=== PATIENT | male | born 1995 | race Caucasian/White ===

== ENCOUNTER → 2017-02-28 | Outpatient (CLI) | payer OTHER ==
--- NOTE | 2017-02-28 11:46 | DIAGNOSTIC IMAGING REPORT ---
TESTICULAR ULTRASOUND HISTORY: N43.40 [id number] COMPARISON: None. FINDINGS: Right testis: 5.4 x 2.8 x 3.2 cm. There are no intratesticular masses. Normal color flow. No significant hydrocele. The epididymis is unremarkable. Left testis: 5.5 x 2.6 x 3.2 cm. There are no intratesticular masses. Normal color flow. No hydrocele. There is a 1.4 x 1.3 x 1.0 cm cyst within the epididymal head. This demonstrates punctate internal echoes. This corresponds the patient's bowel abnormality. IMPRESSION: 1. Normal bilateral testes. 2. A 1.4 x 1.3 x 1.0 cm slightly complex cyst within the left epididymal head. This likely represents a spermatocele. Electronically signed by: Jose Maria Choi M.D. 02/28/2017 11:44 AM Dictated Date/Time: 02/28/2017 11:42 AM
== END | disposition home or self-care (01) ==
LOC: C.ULTR 11:06
PROVIDERS: ATTEND Urology
DX: N43.40 Spermatocele of epididymis, unspecified (principal); N50.9 Disorder of male genital organs, unspecified

== ENCOUNTER 2017-11-04 14:10 | Emergency (ER) | payer OTHER ==
[~2017-11-04] VITALS: Ht 170.2 cm; Wt 80.6 kg
[2017-11-04 14:30] VITALS: BP 118/73; PULSE 89; TEMP 36.6; O2SAT 100; Ht 170.2 cm; Wt 80.6 kg
--- NOTE | 2017-11-04 15:05 | DIAGNOSTIC IMAGING REPORT ---
RIGHT KNEE 2 VIEWS HISTORY: R lateral knee pain COMPARISON: None. FINDINGS: There is no fracture or dislocation. Soft tissues are unremarkable. No radiopaque foreign bodies. No significant knee effusion IMPRESSION: Unremarkable right knee. Electronically signed by: Jose Maria Choi M.D. 11/04/2017 3:04 PM Dictated Date/Time: 11/04/2017 3:00 PM
--- NOTE | 2017-11-04 15:23 | EMERGENCY ROOM VISIT NOTE ---
History First contact with patient: 14:34 Chief Complaint: KNEEPAIN Stated Complaint: R KNEE PAIN History of Present Illness The patient is a 22 year old male who presents to the Emergency Room with complaints of right lateral knee pain after playing soccer yesterday. The patient reports that he did feel one pop while playing. He reports twisting the knee the second time. The patient has not noticed any significant swelling. Ambulation and weightbearing worsens his pain to a 7 out of 10. He denies any gross instability, clicking or locking. He denies any pain extending into the thigh or leg. The patient has a history of left anterior cruciate ligament reconstruction in 2016. He denies any paresthesias or numbness of the right lower extremity. Review of Systems 10 system review was performed and was negative except for pertinent positives and negatives as indicated in history of present illness Past Medical/Surgical History Medical Problems: (1) Spermatocele Of Epididymis, Unspecified Surgical Problems: (1) History of reconstruction of anterior cruciate ligament tear Family History Unremarkable Social History Smoking Status: Never Smoker Alcohol Use: occasionally Marital Status: single Occupation Status: [employer] student Current/Historical Medications No Active Prescriptions or Reported Meds Physical Exam Vital Signs Date Time Temp Pulse Resp B/P (MAP) Pulse Ox O2 Delivery O2 Flow Rate FiO2 11/04/17 14:30 36.6 89 16 118/73 100 Room Air Physical Exam CONSTITUTIONAL: Healthy and well nourished. Alert and oriented X 3 with positive affect. Patient does not appear in any acute distress. HEENT: Normocephalic, atraumatic. Pupils equal, round and reactive. NECK: Full active range of motion without discomfort. MUSCULOSKELETAL: Examination of the right knee does not show any tissue injuries , ecchymosis or edema. No joint effusion appreciated. The patient is tender over the lateral joint line, and has worsening pain with varus stress. There is no gross ligamentous instability. Patient also has a positive anterior draw solid endpoint. Negative posterior draw area negative pivot shift. No popliteal masses. The patient has full active range of motion without discomfort. No focal tenderness to palpation of the proximal fibula or tibial plateau. Pedal pulses are intact. INTEGUMENTARY: No rash or other significant dermatologic conditions noted. NEUROLOGIC: Right lower extremity is sensory intact. Medical Decision & Procedures ER Provider Diagnostic Interpretation: My interpretation of right knee x-rays does not show any acute fractures or joint effusion. Radiologist report is as follows: RIGHT KNEE 2 VIEWS HISTORY: R lateral knee pain COMPARISON: None. FINDINGS: There is no fracture or dislocation. Soft tissues are unremarkable. No radiopaque foreign bodies. No significant knee effusion IMPRESSION: Unremarkable right knee. ED Course Patient history and physical exam were performed. Nurse's notes were reviewed. Vital signs were reviewed and were normal. The patient refused any analgesics while in the emergency department. X-rays of the right knee were normal. A knee immobilizer and crutches were dispensed. The patient was encouraged to intermittently apply ice and elevate the knee for swelling and pain. Ibuprofen and Tylenol if needed for additional pain relief. The patient was provided contact information for [facility] for further follow- up and management. The patient's was happy with plan of care, voiced understanding of all discharge instructions, and denied any significant pain at the time of discharge. Medical Decision Medication Reconcilliation Current Medication List: was personally reviewed by mo Blood Pressure Screening Patient's blood pressure: Normal blood pressure Impression Primary Impression: Pain in lateral portion of right knee Departure Information Prescriptions No Active Prescriptions or Reported Meds Referrals No Doctor, Assigned (PCP) Patient Instructions My [facility]
== END 2017-11-04 15:30 | disposition home or self-care (01) ==
LOC: C.EDB 14:11 → C.EDD 15:30
DX: M25.561 Pain in right knee (principal); X50.0XXA Overexertion from strenuous movement or load, initial encounter; Y93.66 Activity, soccer

== ENCOUNTER → 2018-05-07 | Outpatient (CLI) | payer OTHER | END | disposition home or self-care (01) | LOC: C.RDSM 09:50 | PROVIDERS: ATTEND Orthopaedic Surgery Sports Medicine | DX: M25.561 Pain in right knee (principal); M25.562 Pain in left knee ==

== ENCOUNTER 2018-06-02 22:01 | Emergency (ER) | payer OTHER ==
[2018-06-02 22:06] VITALS: BP 134/85; PULSE 116; TEMP 36.9; O2SAT 96
[2018-06-02] MEDS ORDERED: IBUPROFEN 600 MG TAB PO STA (22:16)
[2018-06-02] MEDS ORDERED: MONTELUKAST SOD 10 MG TAB PO STA (22:16)
[2018-06-02] MEDS ORDERED: BENZONATATE 100MG CAP PO STA (22:16)
[2018-06-02] MEDS ORDERED: ALBUTEROL HFA 8 GM INHALER INH STA (22:16)
[2018-06-02] MEDS ORDERED: MONT1TAB3 PO (22:18)
[2018-06-02] MEDS ORDERED: METH4PAK PO (22:18)
[2018-06-02] MEDS ORDERED: BENZ1CAP90 PO (22:18)
--- NOTE | 2018-06-02 22:20 | EMERGENCY ROOM VISIT NOTE ---
ED Visit Note First contact with patient: 22:10 CHIEF COMPLAINT: Asthma, allergy symptoms HISTORY OF PRESENT ILLNESS: This 22-year-old male patient presents to the emergency department ambulatory, complaining of URI symptoms x 3 days. The patient states they have been experiencing congestion, runny nose, sore throat, cough, chills, sneezing, and wheezing. He reports chest congestion and dry cough. He states symptoms are worse at night and improved in the morning. They deny any other symptoms including otalgia, swollen lymph nodes, fever, nausea, or vomiting. There is pain with swallowing due to the sore throat. The patient states this is typical of his asthma and allergic rhinitis flareups when traveling to a new place. He states he was recently in [place] and returned 3 days ago when the symptoms began. The patient describes the drainage from the nose as clear and runny. There is sinus pressure, but no pain. The patient has taken cough syrup without improvement in his symptoms. The patient does not recall any known exposure to strep throat. The patient does not have a history of sinus infections. Denies a rash. He states he has also been using inhalers which are . He has not had a routine follow-up regarding his asthma recently. REVIEW OF SYSTEMS: A 10 system review of systems was performed with positives and pertinent negatives listed in the history of present illness. All other systems were reviewed and are negative. ALLERGIES: None MEDICATIONS: None PMH: None SOCIAL HISTORY: The patient is a [employer] student. He lives locally with his roommate. He denies drug, alcohol, tobacco use. PHYSICAL EXAM: VITALS: Vitals are noted on the nurse's note and reviewed by myself. Vital signs stable. GENERAL: This is a 22-year-old male, in no acute distress, nondiaphoretic, well- developed well-nourished. SKIN: The skin was without rashes, erythema, edema, or bruising. There is no tenting of the skin. Capillary reflex less than 2 seconds. HEAD: Normocephalic atraumatic. EARS: External auditory canals clear, bilateral tympanic membranes pearly sam without erythema or effusion bilaterally. EYES: Pupils equal round and reactive to light and accommodation. Conjunctivae without injection, sclerae without icterus. Extraocular movements intact. NOSE: Patent, turbinates with inflammation but no erythema. Clear rhinorrhea noted. No sinus tenderness. MOUTH: Mucous membranes moist. Tonsils are not enlarged. Pharynx without erythema or exudate. Uvula midline. Airway patent. Tongue does not deviate. NECK: Supple without nuchal rigidity. No lymphadenopathy. No thyromegaly. Cervical spine is nontender. No JVD. HEART: Regular rate and rhythm without murmurs gallops or rubs. LUNGS: Clear to auscultation bilaterally without wheezes, rales or rhonchi. No dullness to percussion. No retractions or accessory muscle use. MUSCULOSKELETAL: No muscle atrophy, erythema, or edema noted. Full range of motion without joint tenderness in all extremities. No tenderness to palpation. Normal gait. Strength 5/5 throughout. NEURO: Patient was alert and oriented to person place and time. Normal sensation to light and sharp touch. No focal neurological deficits. EMERGENCY DEPARTMENT COURSE: The patient was seen and evaluated as above. Symptoms are consistent with allergic rhinitis. The patient is complaining of a significant amount of chest congestion and coughing. He was given Tessalon Perles, albuterol, ibuprofen, and Singulair here in the emergency department. I recommended outpatient treatment with the above medications as well as a Medrol Dosepak to help with the inflammation. The patient was agreeable. He was encouraged to follow-up outpatient with [facility] [address] this week. Discharge instructions reviewed, and the patient was discharged home in good condition. I attest that I have personally reviewed the patient's current medication list. Patient was found to have normal blood pressure on screening and does not require follow-up. DIFFERENTIAL DIAGNOSIS: Acute Sinusitis, allergic rhinitis, asthma exacerbation , tracheobronchitis, acute pharyngitis, URI, Strep Pharyngitis, Eqoc-Nyrp-Dqjol Disease, Peritonsillar abscess, tonsilitis, malignancy, and others DIAGNOSIS: Allergic rhinitis The chart was completed utilizing [employer] voice recognition software. Grammatical errors, random word insertions, pronoun errors, and incomplete sentences are an occasional consequence of this system due to software limitations, ambient noise, and hardware issues. Any formal questions or concerns about the content, text, or information contained within the body of this dictation should be directly addressed to the provider for clarification. Current/Historical Medications Scheduled Methylprednisolone (Medrol Dosepak), 0 PO DAILY Montelukast Sodium (Singulair), 10 MG PO QD Scheduled PRN Benzonatate (Tessalon Perles), 200 MG PO TID PRN for Cough Allergies Coded Allergies: No Known Allergies (Unverified , 11/04/17) Vital Signs Date Time Temp Pulse Resp B/P (MAP) Pulse Ox O2 Delivery O2 Flow Rate FiO2 06/02/18 22:11 97 Room Air 06/02/18 22:06 36.9 116 18 134/85 96 Room Air Medications Administered Medications (Trade) Dose Ordered Sig/Hetal Route Start Time Stop Time Status Last Admin Dose Admin Montelukast Sodium (Singulair Tab) 10 mg NOW STAT PO 06/02/18 22:16 06/02/18 22:18 DC 06/02/18 22:26 10 MG Albuterol (Ventolin Hfa Inhaler) 2 puffs NOW STAT INH 06/02/18 22:16 06/02/18 22:18 DC 06/02/18 22:27 2 PUFFS Benzonatate (Tessalon Perles Cap) 200 mg NOW STAT PO 06/02/18 22:16 06/02/18 22:18 DC 06/02/18 22:26 200 MG Ibuprofen (Motrin Tab) 600 mg NOW STAT PO 06/02/18 22:16 06/02/18 22:18 DC 06/02/18 22:26 600 MG Departure Information Impression Primary Impression: Allergic rhinitis Dispostion Home / Self-Care Condition GOOD Prescriptions Methylprednisolone (MEDROL DOSEPAK) 4 Mg Clint 0 PO DAILY, #1 PKT Prov: Mya Espinoza PA-C 06/02/18 Montelukast Sodium (SINGULAIR) 10 Mg Tab 10 MG PO QD, #30 TAB Prov: Mya Espinoza PA-C 06/02/18 Benzonatate (Tessalon Perles) 200 Mg Cap 200 MG PO TID Y for Cough, #30 CAP Prov: Mya Espinoza PA-C 06/02/18 Referrals No Doctor, Assigned (PCP) [facility] Patient Instructions ED Allergy Seasonal, My [facility] Additional Instructions You were seen and evaluated in the emergency department today for allergic rhinitis. You were prescribed Singulair. This is an antihistamine. Take once daily at bedtime as directed. You have been provided with an albuterol inhaler to use for wheezing or difficulty breathing. Use this inhaler 1-2 puffs every 4-6 hours as needed. If you find that your symptoms are not improving with the use of the inhaler, or if you find that you need to use the inhaler longer than 1 week, return to the ED or follow-up with your PCP. You have been given benzonatate (Tessalon Pearles) to be used for coughing. These should be taken 1 capsule up to 3 times per day as needed for coughing. Do not take this medication more than prescribed. You may use this medication in addition to OTC cough medications. You have been prescribed a Medrol Dosepak. This is a steroid which will help decrease your inflammation, redness, and itch. Take the medicine as prescribed. Take the ENTIRE 6 day course of the steroids. No NSAIDs while taking steroids. For your sore throat, you may use a 1:1 mixture of liquid Benadryl and liquid Maalox. Gargle and spit this mixture. It will help to soothe the throat and provide some relief. Drink warm tea with honey and lemon, as this will also help to soothe the throat. Gargle with salt water frequently. As discussed, you should take OTC Mucinex and/or Sudafed for your symptoms. Please do not exceed the recommended daily dosages. Ibuprofen(Motrin, Advil) may be used for fever or pain. Use 600mg every six hours as needed. Take with food. Avoid using more than 2400mg in a 24 hour period. Do not use 2400mg per day for more than three consecutive days without physician direction. Prolonged inappropriate use can lead to stomach upset or ulcers. No NSAIDs while taking steroids. (AND/OR) Acetaminophen(Tylenol) may be used for fever or pain. Use 1000mg every six hours as needed. Avoid using more than 3000mg in a 24 hour period. For congestion, you may use Flonase OTC. Please get plenty of rest and drink plenty of fluids. Please return or follow-up with your PCP in 1 week if you are not experiencing any improvement in your symptoms. Return to the emergency department for coughing up blood, difficulty breathing, chest pain, worsening symptoms, or for other concerns. Problem Qualifiers Primary Impression: Allergic rhinitis Allergic rhinitis trigger: unspecified Allergic rhinitis seasonality: seasonal Qualified Codes: J30.2 - Other seasonal allergic rhinitis
== END 2018-06-02 22:34 | disposition home or self-care (01) ==
LOC: C.EDB 22:02 → C.EDA 22:34
DX: J30.2 Other seasonal allergic rhinitis (principal)